=== PATIENT | female | born 2000 | race Caucasian/White ===

== ENCOUNTER 2020-06-26 12:12 | Inpatient (IN) | payer OTHER ==
[~2020-06-26] VITALS: Ht 165.1 cm; Wt 80.6 kg
[2020-06-26] VITALS (21 sets, daily range): BP systolic 99–146; BP diastolic 53–83
[2020-06-26] MEDS ORDERED: MULTTAB20 PO (12:35)
[2020-06-26 13:50] LABS: HEMATOCRIT 40.4 % (36.0-47.0); HEMOGLOBIN 13.6 g/dl (12.0-15.5); MEAN CORPUSCULAR HEMOGLOBIN 30.1 pg (27.0-33.0); MEAN CORPUSCULAR HGB CONC 33.7 g/dl (32.0-36.5); MEAN CORPUSCULAR VOLUME 89.4 fl (80.0-96.0); PLATELET COUNT, AUTOMATED 154 10^3/uL (150-450); RED BLOOD COUNT 4.52 10^6/uL (4.00-5.40)
[2020-06-26] MEDS ORDERED: LACTATED RINGER'S 1000 ML IV STA (14:30)
[2020-06-26] MEDS ORDERED: LR 1,000 ML IV SCH (14:30)
[2020-06-26] MEDS ORDERED: FENTANYL 2MCG/ML ROPIVACAINE 0.2% IN 0.9% NACL 100ML IVBAG As Ordered ONE (14:39)
[2020-06-26] MEDS ORDERED: NALOXONE INJ 0.4MG/1ML VIAL (J2310 PER 1MG) IV PRN (15:00)
[2020-06-26] MEDS ORDERED: ONDANSETRON 4MG/2ML VIAL IV PRN (15:00)
[2020-06-26] MEDS ORDERED: ePHEDrine SULFATE 25 MG/5 ML(5MG/ML) SYRINGE IV PRN (15:00)
[2020-06-26] MEDS ORDERED: FENTANYL/ROPIVACAINE/NACL BAG 100 ML EPIDURAL SCH (15:00)
[2020-06-26] MEDS ORDERED: EPIDURAL/PCA KEYS XX PRN (15:00)
[2020-06-26] MEDS ORDERED: LACTATED RINGER'S 1000 ML IV PRN (15:00)
[2020-06-26] MEDS ORDERED: diphenhydrAMINE 50MG/ML VIAL (J1200) IV PRN (15:00)
[2020-06-26] MEDS ORDERED: EPIDURAL COMMENT XX SCH (15:00)
[2020-06-26] MEDS ORDERED: REFRIGERATOR IV KEYS XX PRN (15:00)
--- NOTE | 2020-06-26 15:29 | HPEPDOC ---
Obstetrical History & Physical General Date of Admission Jun 26, 2020 at 13:05 History of Present Illness 19 yo at 39+5 weeks today by 9+6 week US on [id number] presented to L&D with regular, painful contractions. She denies any vaginal bleeding or leakage of fluid. She endorses movement. 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 history Past Medical History Medical History Denies Surgical History: Denies/None Family History Significant Family History: No pertinent family hx Social History Marital Status: Family situation: Spouse/partner home Psychosocial History: No pertinent psych hx * Smoker: non-smoker Alcohol: Denies Drugs: denies Imunizations Tdap status: current Influenza Status: current Allergies Coded Allergies: No Known Allergies (Unverified , 06/26/20) Medications Scheduled No122/Iron/Folic Acid ( Multi Tablet) 1 Each Tablet, 1 TAB PO DAILY Physical Examination Physical Examination GENERAL: Alert and oriented times three. Uncomfortable appearing. ABDOMEN: Gravid and non-tender to touch. FETUS: Is vertex (VTX) by sterile vaginal examination (SVE) EXTREMITIES: No edema. Vital Signs/I&O Vital Signs Date Time Temp Pulse Resp B/P (MAP) Pulse Ox O2 Delivery O2 Flow Rate FiO2 06/26/20 15:06 94 104/66 (79) 06/26/20 14:50 98.8 20 Laboratory Data 24H LABS Laboratory Tests 2 06/26/20 13:36: Nucleated Red Blood Cells % (auto) 0.0 06/26/20 13:48: Serology Scanned Report Hepatitis B Testing CBC/BMP Laboratory Tests 06/26/20 13:36 Urine Culture: No Growth Pertinent Laboratoy Data Blood Type: O+ RBC Antibody Screen: Negative HIV: Negative Hepatitis B: Negative Hepatitis C: Unknown Rapid Plasma Reagin: Nonreactive Rubella: Immune Varicella: Immune Chlamydia/Gonorrhea: Negative Group B Streptococcus: Negative Quad Screen Test: Negative Cystic Fibrosis: Negative Glucose Tolerance Test: 97 Anatomy Ultrasound Ultrasound Date: Jan 18, 2020 Placenta Location: Posterior Normal Anatomy: Yes Placenta Previa: No Steroid Therapy Steroid Therapy: No Vaginal Examination Dilation: 4 cm Effacement: 80% Station: -2 Cervical Consistency: Medium Cervical Position: Middle Presentation: Cephalic presentation Position: Vertex (occiput) Assessment Heart Rate (FHR): 135 Variability: Moderate Accelerations: Positive Decelerations: None Tocometer Contractions: Yes Frequency: regular Strength: palpated as moderate Assessment/Plan Assessment 19 yo at 39+5 weeks presented to L&D in early labor. Plan Admit to L&D for expectant management of labor. Will augment as clinically indicated. Apply IV fluids. GBS negative. Clear liquid diet. Labs per L&D protocol. Patient may have epidural if desired. Anticipate . Dada Jimenez, DO Labor and Delivery Counseling Vaginal / Operative vaginal delivery / C section counseling We discussed Labor and all its inherent risks. We will deliver your baby through the vagina with possible assistance of forceps or vacuum device if needed for maternal or indications. Forceps and vacuum are devices that can assist with vaginal delivery when normal pushing efforts cannot achieve d elivery on their own or when delivery is needed in an emergency for baby's well- being. Medications may be required to induce or augment (help) your labor in order to achieve a vaginal delivery. An episiotomy may be required to help your baby to delivery vaginally. You may also require repair of any lacerations or tears of your vagina or vulva that are caused by delivery. In some cases, emergencies can occur that require an emergency section delivery so quickly that there may not be enough time to stop and complete consent forms for section. Understand that if this occurs, your providers will discuss the need for a section with you before they proceed with surgery. section is the delivery of your baby through an incision in your abdomen. In some situations, section may be safer to mom and baby than continuing labor and is only performed when clinically indicated. Risks of vaginal delivery include but are not limited to: Bleeding, infection, injury to the vagina, pelvic structures, injury to baby, damage to the uterus, reactions to anesthesia, uterine rupture, risk of hysterectomy for life threatening bleeding, or . Medications used to induce or augment labor may increase your risk for infection, uterine tachysystole, uterine rupture, heart rate abnormalities, need for emergency delivery or possible hysterectomy, and hemorrhage. Additional risks for use of forceps and vacuum include: increased risk of perineal and vaginal lacerations, risk of urinary or bowel incontinence, increased risk of injury to baby with bruising, scratches, hematomas on the head, or intracranial bleeding. Ms. Godfrey appears to understand these risks and desires to proceed with her labor at this location. She also consents to a blood transfusion if necessary. All questions answered. DO GREGORIO Ac CHRISTOPHER J. DO Jun 26, 2020 15:29
--- NOTE | 2020-06-26 18:18 | IPNPDOC ---
Text Note Date of Service The patient was seen on 06/26/20. NOTE Patient comfortable with epidural in place. Cervix: 8/C/0. AROM performed p roductive of clear fluid. FHR remains Cat I. Continue current management as Dominique is progressing well. DO Tony VS,Kylee, I+O VS, Kylee, I+O Laboratory Tests 06/26/20 13:36 Vital Signs Date Time Temp Pulse Resp B/P (MAP) Pulse Ox O2 Delivery O2 Flow Rate FiO2 06/26/20 18:00 98.4 70 99/53 (68) 06/26/20 14:50 20 DIONICIO PERKINS DO Jun 26, 2020 18:18
[2020-06-26] MEDS ORDERED: OXYTOCIN 30 UNITS IN 0.9% NaCl 500ML IV BAG (J2590) As Ordered ONE (18:55)
[2020-06-26] MEDS ORDERED: OXYTOCIN DRIP 30 UNITS in IV 1 EA IV SCH (20:57)
[2020-06-26 20:58] LABS: CORD GAS ABE A -10.1; CORD GAS O2 SAT A 95.9 %; CORD GAS PCO2 A 54.3 mmHg; CORD GAS PH A 7.162 UNITS; CORD GAS PO2 A 78.9 mmHg; CORD GAS SBC A 16.6 MEQ/L; CORD GAS TCO2 A 20.7 MEQ/L
[2020-06-26 21:00] LABS: CORD GAS ABE V -6.6; CORD GAS HCO3 V 21.7 MEQ/L; CORD GAS O2 SAT V 65.2 %; CORD GAS PCO2 V 53.9 mmHg; CORD GAS PH V 7.222 UNITS; CORD GAS PO2 V 30.8 mmHg; CORD GAS SBC V 18.4 MEQ/L; CORD GAS TCO2 V 23.3 MEQ/L
[2020-06-26] MEDS ORDERED: PROMETHAZINE 25 MG TAB PO PRN (21:00)
[2020-06-26] MEDS ORDERED: BENZOCAINE 20% HEMORRHOIDAL OINTMENT 28GM TUBE TOP PRN (21:00)
[2020-06-26] MEDS ORDERED: RHOGAM 300 MCG (1500 IU) INJ (J2790) IM SCH (21:00)
[2020-06-26] MEDS ORDERED: ACETAMINOPHEN 500 MG TAB PO PRN (21:00)
[2020-06-26] MEDS ORDERED: IBUPROFEN 600MG TAB PO PRN (21:00)
[2020-06-26] MEDS ORDERED: MEASLES,MUMPS,RUBELLA VACCINE INJ (MMR-II) (90707) SC SCH (21:00)
[2020-06-26] MEDS ORDERED: ACETAMINOPHEN TAB 650MG DOSE (2X325MG) PO PRN (21:00)
[2020-06-26] MEDS ORDERED: DOCUSATE SODIUM 100MG CAPSULE PO PRN (21:00)
--- NOTE | 2020-06-26 21:15 | DNPDOC ---
[facility] Delivery Note Delivery Note DATE OF DELIVERY: [id number] at ~2039 PREDELIVERY DIAGNOSIS: 39+5 weeks gestation and active labor POST DELIVERY DIAGNOSIS: Delivered. PROCEDURE: Spontaneous vaginal delivery GLEASON OPERATOR: Dr. Jimenez ANESTHESIA: Epidural. ESTIMATED BLOOD LOSS: 200 mL. FINDINGS: 7 pound 4 ounce male infant, Score 9/9 DELIVERY SUMMARY: Presented to room as Dominique was pushing well to +3 station. The bed was broken down and she was prepped for delivery. With excellent effort over about 2 hours of pushing, her baby delivered. Presentation was direct OP. The baby restituted after delivery of the head to ROT. The left anterior shoulder delivered with gentle traction followed easily by the remainder of the body. The was dried and stimulated on the field and a bulb suction was used. The was placed on the maternal abdomen and cried vigorously. The three vessel umbilical cord was then clamped and cut by the FOB after appropriate time delay and under my direction. Cord blood samples for gases were obtained. Third stage was completed with gentle traction on on the cord and it was productive of an intact placenta. The uterus was firmed with massage and pitocin was administered IV bolus. Inspection of the cervix, vagina, labia, and perineum revealed a small left vaginal sidewall laceration and a right labial laceration. These were repaired with 4-0 vicryl suture in the usual fashion. There was excellent cosmesis and hemostasis after the repairs. The fundus was palpated again and was firm. Sponge, instrument, and needle counts were correct X2. Mother and infant stable when I left the room. DO GREGORIO Ac CHRISTOPHER J. DO Jun 26, 2020 21:15
[2020-06-27 06:00] VITALS: BP 120/75
--- NOTE | 2020-06-27 07:25 | IPNPDOC ---
Progress Note Date of Service: Jun 27, 2020 Progress Note Dominique is a 19 yo G1 now P1 who underwent an uncomplicated yesterday evening after being admitted for active labor. No acute events overnight. She reports feeling well this morning. She is ambulating, voiding, tolerating a regular diet. Lochia is minimal. Vitals - VSS, afebrile, normotensive, non tachycardic General - AAOX3, sitting up in bed, NAD Abdomen - Fundus firm at U-2. No fundal tenderness Extremities - No edema Dominique is doing well this morning. Continue routine care. Anticipate DC home tomorrow. All questions answered. Dionicio Jimenez DO VS, I&O, 24H, Fishbone Vital Signs/I&O Vital Signs Date Time Temp Pulse Resp B/P (MAP) Pulse Ox O2 Delivery O2 Flow Rate FiO2 06/27/20 06:00 98.2 72 18 120/75 (90) I&O- Last 24 Hours up to 6 AM 06/27/20 06:00 Intake Total 3177 ml Output Total 1425 ml Balance 1752 ml Laboratory Data 24H LABS Laboratory Tests 2 06/26/20 13:36: Nucleated Red Blood Cells % (auto) 0.0, Hepatitis B Surface Antigen NEGATIVE 06/26/20 13:48: Serology Scanned Report Hepatitis B Testing 06/26/20 20:45: Cord Venous Blood pH 7.222, Cord Venous Blood PCO2 53.9, Cord Venous Blood PO2 30.8, Cord Venous Blood HCO3 21.7, Cord Venous Blood Total CO2 23.3, Cord Venous Base Excess (Actual) -6.6, Cord Venous Base Excess (Standard) 18.4, Cord Venous Blood Oxygen Saturation 65.2 06/26/20 20:47: Cord Arterial Blood pH 7.162, Cord Arterial Blood PCO2 54.3, Cord Arterial Blood PO2 78.9, Cord Arterial Blood HCO3 19.0, Cord Arterial Blood Total CO2 20.7, Cord Arterial Blood Base Excess -10.1, Cord Arterial Base Excess (Standard 16.6, Cord Arterial Bld Oxygen Saturation 95.9 CBC/BMP Laboratory Tests 06/26/20 13:36 DIONICIO JIMENEZ DO Jun 27, 2020 07:24
[2020-06-27] MEDS: PRENATAL VITAMINS CHEWABLE TABLET PO SCH (07:27)
[2020-06-27] MEDS: IBUPROFEN 800 MG TAB PO PRN ×2 (07:27→19:33)
[2020-06-27 18:00] VITALS: BP 126/68
[2020-06-28 06:00] VITALS: BP 124/80
[2020-06-28] MEDS: IBUPROFEN 800 MG TAB PO PRN (06:02)
[2020-06-28] MEDS: PRENATAL VITAMINS CHEWABLE TABLET PO SCH (08:42)
--- NOTE | 2020-06-28 08:46 | IPNPDOC ---
Progress Note Date of Service: Jun 28, 2020 Day#: 2 Progress Note SUBJECT: Dominique is a 19yo s/p , doing well day #2. She has been ambulating, voiding spontaneously without issue and tolerating regular diet. She is . Reports lochia is decreasing. Patient is ambulating well. Pain well-controlled on motrin/tylenol. OBJECTIVE: VITAL SIGNS: Within normal limits, afebrile. Alert and oriented times three. Abdomen: Fundus firm at U-1. Soft, NTTP. Ext: no calf tenderness ASSESSMENT: Dominique is a 19yo s/p , doing well day #2. Vitals within normal limits, afebrile, hemodynamically stable with no evidence of infection. PLAN: 1. Discharge to home today. 2. Tylenol and Motrin for pain. 3. Encourage regular diet and ambulation. 4. Encourage , support PRN 5. Routine PP visit in 6 weeks in clinic. 6. Discussed return precautions at length. VS, I&O, 24H, Fishbone Vital Signs/I&O Vital Signs Date Time Temp Pulse Resp B/P (MAP) Pulse Ox O2 Delivery O2 Flow Rate FiO2 06/28/20 06:00 98.0 68 16 124/80 (95) 06/27/20 18:00 100 Room Air VIOLET BARRAZA DO Jun 28, 2020 08:46
== END 2020-06-28 11:55 | disposition home or self-care (01) | DRG 807 ==
LOC: M LDO 12:12 → M LDI 13:05 → M OBS 22:25
PROVIDERS: ADMIT Obstetrics & Gynecology; ATTEND Obstetrics & Gynecology
PROC: 10E0XZZ Delivery of Products of Conception, External Approach (ICD-10-PCS; principal; 2020-06-26)
PROC: 0HQ9XZZ Repair Perineum Skin, External Approach (ICD-10-PCS; 2020-06-26)
PROC: 10907ZC Drainage of Amniotic Fluid, Therapeutic from Products of Conception, Via Natural or Artificial Opening (ICD-10-PCS; 2020-06-26)
DX: O70.0 First degree perineal laceration during delivery (principal); Z37.0 Single live birth; Z3A.39 39 weeks gestation of pregnancy